=== PATIENT | female | born 1975 | race Caucasian/White ===

== ENCOUNTER 2023-05-25 18:48 | Emergency (ER) | payer OTHER, MEDICAID ==
[~2023-05-25] VITALS: Ht 172.7 cm; Wt 102.1 kg
[~2023-05-25 18:48] MED LIST: BECL8.7A6 IH; CEL20 PO; DIAZ10TA PO; MONT-47 PO; PROVAIR; [UNRECOGNIZED DRUG - REMARK]; iron
[2023-05-25 19:01] VITALS: BP_SYST 132; PULSE 109; RESP 16; TEMP 98.2; O2SAT 98
--- NOTE | 2023-05-25 19:40 | NUR ---
ER at bedside examining patient.
--- NOTE | 2023-05-25 19:45 | NUR ---
Patient transported to radiology via WALKING, accompanied by ABENA.
--- NOTE | 2023-05-25 19:49 | NUR ---
pt bib self. c/o R Lower leg pain. Pt states to have had the pain for meds but the pain became unbearable in the weekend. Pt states to have gone to her PCP and he reffered her to ER to rule out DVT. Pt states pain is poking pain and does not feel like a cramp. No noted trauma to area. Pt states to sit long periods of time due to her job and notices that she gets up and walks makes the pain bearable. Pt denies taking pain medications for pain. Pt states pain is 7/10. Pt VSS. AAOX4. Skin dry and intact. Pt in bed with side rails up. Pt sister at bedside.
[2023-05-25 20:09] LABS: BILIRUBIN,URINE NEGATIVE (NEGATIVE); BLOOD, URINE NEGATIVE (NEGATIVE); CLARITY/URINE CLEAR (CLEAR); COLOR,URINE YELLOW (YELLOW); GLUCOSE,URINE NEGATIVE (NEGATIVE); KETONES,URINE NEGATIVE (NEGATIVE); LEUKOCYTE ESTERASE ,URINE NEGATIVE (NEGATIVE); NITRITE, URINE NEGATIVE (NEGATIVE); PH,URINE 5.5 (5.0-8.0); PROTEIN URINE NEGATIVE (NEGATIVE); UROBILINOGEN,URINE 0.2 (0.2-1.0)
[2023-05-25 20:24] LABS: BASOPHILS # (AUTO) 0.1 K/uL (0.0-0.2); BASOPHILS % (AUTO) 0.9 % (0.0-2.0); EOSINOPHILS # (AUTO) 0.5 K/uL (0.0-0.4); EOSINOPHILS % (AUTO) 6.7 % (0.0-4.0); HEMATOCRIT 40.8 % (36-48); HEMOGLOBIN 13.5 g/dL (12.0-16.0); LYMPHOCYTES # (AUTO) 2.2 K/uL (1.0-5.5); MEAN CORPUSCULAR HEMOGLOBIN 30 pg (27-31); MEAN CORPUSCULAR HGB CONC 33 % (32-36); MEAN CORPUSCULAR VOLUME 90 fL (79.0-98.0); MONOCYTES # (AUTO) 0.5 K/uL (0.0-1.0); NEUTROPHILS # (AUTO) 4.1 K/uL (1.8-7.7); NEUTROPHILS % (AUTO) 55.4 % (40.0-70.0); PLATELET COUNT (AUTO) 277 K/uL (130-430); RED BLOOD CELL COUNT(AUTO) 4.54 MIL/uL (4.2-6.2); RED CELL DISTRIBUTION WIDTH 13.5 % (9.0-15.0); WHITE BLOOD COUNT (AUTO) 7.3 K/uL (4.8-10.8)
[2023-05-25 20:28] LABS: ALANINE AMINOTRANSFERASE 25 U/L (12-78); ALBUMIN 3.6 g/dL (3.4-4.8); ANION GAP 7 (5-15); ASPARTATE AMINOTRANSFERASE 18 U/L (10-37); CALCIUM 8.7 mg/dL (8.4-11.0); CHLORIDE 103 mmol/L (98-107); CREATININE 0.83 mg/dL (0.55-1.30); GFR AFRICAN AMERICAN 94 mL/min (>90); GLUCOSE 110 mg/dL (74-106); TOTAL BILIRUBIN 0.5 mg/dL (0.0-1.0); UREA NITROGEN, BLOOD 17 mg/dL (8-21)
--- NOTE | 2023-05-25 21:38 | NUR ---
Patient given written and verbal discharge instructions and verbalizes understanding. ER MD discussed with patient the results and treatment provided. Patient in stable condition. ID arm band removed. Patient educated on pain management and to follow up with PMD. Opportunity for questions provided and answered. Medication side effect fact sheet provided.
[2023-05-25 22:17] VITALS: BP_SYST 132; PULSE 109; RESP 16; TEMP 98.2; O2SAT 98
--- NOTE | 2023-05-25 22:51 | NUR ---
Patient given written and verbal discharge instructions and verbalizes understanding. ER MD discussed with patient the results and treatment provided. Patient in stable condition. ID arm band removed. IV catheter removed intact and dressing applied, no active bleeding. Rx of given. Patient educated on pain management and to follow up with PMD. Pain Scale . Opportunity for questions provided and answered. Medication side effect fact sheet provided.
== END 2023-05-25 21:38 | disposition home or self-care (01) ==
LOC: SED 18:48
DX: R60.0 Localized edema (principal); J45.909 Unspecified asthma, uncomplicated; Z88.2 Allergy status to sulfonamides; Z79.899 Other long term (current) drug therapy
CPT/HCPCS: 36415; 71045; 80053; 81003; 83880; 84484; 85025; 93005; 93970; 99285